=== PATIENT | male | born 1955 | race Caucasian/White ===

== ENCOUNTER 2018-06-27 08:04 | Outpatient (CLI) | payer OTHER ==
[~2018-06-27 08:04] MED LIST: ASA81 MG; FINASTERIDE5 MG; LISINOPRIL10 MG; SIMVASTATIN20 MG; SINGULAIR10 MG
== END 2018-06-27 08:30 | disposition home or self-care (01) ==
LOC: SONOGRAMA 08:04 → RAD 08:04 → MRI 09:15
DX: N40.1 Benign prostatic hyperplasia with lower urinary tract symptoms (principal); R31.9 Hematuria, unspecified
CPT/HCPCS: 70551

== ENCOUNTER → 2018-11-23 | Outpatient (CLI) | payer OTHER | END | disposition home or self-care (01) | LOC: NUCLEAR 07:33 | DX: I20.9 Angina pectoris, unspecified (principal) | CPT/HCPCS: 78452; 93017; A9500 ==

== ENCOUNTER 2019-02-19 10:48 | Inpatient (IN) | payer OTHER ==
[~2019-02-19] VITALS: Ht 177.8 cm; Wt 112.5 kg
[2019-02-19] MEDS ORDERED: PANADOL EXTRA500 MG (10:57)
--- NOTE | 2019-02-19 11:00 | NUR ---
PTE ALERTA Y ORIENTADO X 3 ESFERAS, REFIERE INFLAMACION Y DOLOR EN TESTICULO HACE 2 LAZCANO, PTE TAMBIEN REFIERE DIFICULTAD AL ORINAR. SE UBICA EN AREA DE OBSERVACION.
--- NOTE | 2019-02-19 11:56 | NUR ---
PACIENTE ALERTA Y ORIENTADO POR SONG ESFERAS. SE ORIENTA A PACIENTE SOBRE PROCEDIMEINTO Y TX, REFIERE ENTENDER. SE EXTRAE MUESTRAS DE LABORATORIO CON MEDIDAS ASEPTICAS Y SE ADMINISTRA MEDICAMENTO LUIS ORDEN MEDICA.
--- NOTE | 2019-02-19 15:54 | NUR ---
SE RECIBE PTE ALERTA Y ORIENTADO X 3 ESFERAS EN JAMARI CON BARANDAS ELEVADAS,EN COMPANIA DE FAMILIAR.AREA DE VENOPUNCION PATENTE Y HECTOR DE EDEMA CON ANTIBIOTICOS BAJANDO SIN DIFICULTAD.PTE BAJO OBSERVACION.
== END 2019-03-01 10:49 | disposition home or self-care (01) | DRG 728 ==
LOC: ER 10:48 → SEC-K 19:02 → MEDJ 19:02
PROVIDERS: ADMIT Urology
PROC: BV44ZZZ Ultrasonography of Scrotum (ICD-10-PCS; principal; 2019-02-19)
PROC: 3E0F7GC Introduction of Other Therapeutic Substance into Respiratory Tract, Via Natural or Artificial Opening (ICD-10-PCS; 2019-02-24)
DX: N45.2 Orchitis (principal); J45.909 Unspecified asthma, uncomplicated

== ENCOUNTER 2019-03-05 09:37 | Emergency (ER) | payer OTHER ==
[~2019-03-05] VITALS: Ht 177.8 cm; Wt 112.5 kg
[~2019-03-05 09:37] MED LIST changes: +PANADOL EXTRA500 MG
[2019-03-05] MEDS ORDERED: TAMS0.4C (09:48)
[2019-03-05] MEDS ORDERED: MEDROLPACK PO (12:19)
== END 2019-03-05 13:15 | disposition home or self-care (01) ==
LOC: ER 09:37
DX: R60.0 Localized edema (principal); K13.0 Diseases of lips

== ENCOUNTER 2019-03-08 11:21 | Outpatient (CLI) | payer OTHER ==
[~2019-03-08 11:21] MED LIST changes: +MEDROLPACK PO; +TAMS0.4C
== END 2019-03-08 11:25 | disposition home or self-care (01) ==
LOC: RAD 11:21
DX: R05 Cough (principal)

== ENCOUNTER 2019-03-08 11:46 | Outpatient (CLI) | payer OTHER | END 2019-03-08 11:57 | disposition home or self-care (01) | LOC: LAB 11:46 | DX: J11.1 Influenza due to unidentified influenza virus with other respiratory manifestations (principal) ==